=== PATIENT | female | born 1955 | race Caucasian/White ===

== ENCOUNTER 2016-09-22 09:06 | Observation (INO) ==
[2016-09-22 10:06] LABS: Basophils % 0.6 %; Eosinophils % 0.6 %; Hemoglobin 12.2 g/dL (11.5-15.4); Immature Granulocytes % 1.4 % (0-4); Lymphocytes % 27.2 %; Mean Corpuscular HGB Conc 33.9 g/dL (31.6-35.5); Mean Corpuscular Hemoglobin 29.8 pg (28.0-33.3); Mean Platelet Volume 9.3 fL (9.4-12.4); Monocytes # 0.6 K/mcL (0.0-1.3); Neutrophils # 1.9 K/mcL (1.6-8.9); Platelet Count 191 K/mcL (140-400); Red Blood Count 4.09 M/mcL (3.82-4.97); Red Cell Distribution Width 11.8 % (11.5-14.5); Segmented Neutrophils % 54.2 %
[2016-09-22 10:10] LABS: INR 1.2; Prothrombin Time 12.6 Seconds (9.4-12.1)
[2016-09-22 10:12] LABS: Activated Partial Thrombo Time 25.7 Seconds (26.0-36.0)
[2016-09-22 10:17] LABS: BUN/Creatinine Ratio 13 (6-26); Blood Urea Nitrogen 11 mg/dL (7-20); Calcium 8.8 mg/dL (8.6-10.8); Carbon Dioxide 30 mEq/L (19-29); Chloride 99 mEq/L (98-109); Glucose 147 mg/dL (70-99); Osmolality,Calculated 280 (280-300); Potassium 3.2 mEq/L (3.5-4.5); Sodium 134 mEq/L (136-145); eGFR For African Americans > 60 (> 60); eGFR For Non-African Americans > 60 (> 60)
--- NOTE | 2016-09-22 12:11 | Emergency Department Note ---
Disposition Clinical Impression: Syncope and collapse Disposition: Admitted As Inpatient Condition: Fair Time of Disposition: 17:41 Syncope HPI - General Chief Complaint: ED Syncope Stated Complaint: Syncopal episode Time Seen by Provider: 09/22/16 09:14 Source: patient, EMS Mode of arrival: private vehicle Limitations: no limitations Nursing Notes Reviewed: Yes Vital Signs Reviewed: Yes - History of Present Illness HPI Narrative: 60-year-old female presents to the emergency department status post syncopal episode. Patient states that while at work she arose from her chair to go use the restroom and "the next thing I know I was on the floor." Patient states that she did feel dizzy and lightheaded prior to this event. She denies any chest pain or shortness of breath. She currently states that she feels "completely normal." Additionally, patient notes that she has been sick with an upper respiratory infection for the last week and was recently prescribed azithromycin to treat this. She denies any urinary symptoms. She denies any fever, chills, nausea or vomiting. She has not had any abdominal pain. Pt Subjective Complaint: loss of consciousness, collapsed Onset (ago): Just SHOT [employer]LE [employer] Number of episodes: 1 Duration: second(s) Prodromal Symptoms: none Witnessed: yes - by bystander Context: standing up Injuries Sustained Associated with Event: none Current Symptoms: none, back to baseline History: none Treatments prior to arrival: IV fluids Associated trauma secondary to event: No - Related Data Home Medications Medication Instructions Recorded Confirmed Aspirin [Lo-Dose Aspirin EC] 81 mg PO DAILY 09/15/16 09/22/16 LORazepam [Ativan] 0.5 mg PO DAILY 09/15/16 09/22/16 Loratadine [Claritin] 10 mg PO DAILY 09/15/16 09/22/16 Ascorbate Calcium [Vitamin C] 500 mg PO DAILY 09/22/16 09/22/16 Azithromycin [Azithromycin 6-Tab 250 mg PO PER PKG DI 09/22/16 09/22/16 Pack] Buspirone HCl [Buspar] 10 mg PO DAILY 09/22/16 09/22/16 CarBAMazepine [Tegretol] 200 mg PO DAILY 09/22/16 09/22/16 Cholecalciferol (D-3) [Vitamin D] 2,000 unit PO DAILY 09/22/16 09/22/16 Fluticasone Propionate Nasal 50 mcg NS DAILY 09/22/16 09/22/16 [Flonase] Lisinopril/Hydrochlorothiazide 2 tab PO DAILY 09/22/16 09/22/16 [Zestoretic 20-12.5 mg Tablet] Multivitamin [One Daily Essential] 1 tab PO DAILY 09/22/16 09/22/16 Allergies Allergy/AdvReac Type Severity Reaction Status Date / Time Amoxicillin [From Augmentin] Allergy Hives Verified 09/15/16 19:56 Cephalosporins Allergy Hives Verified 09/22/16 14:16 clavulanic acid Allergy Hives Verified 09/15/16 19:56 [From Augmentin] All systems ED: reviewed and negative except as stated. Constitutional: Denies: fever, chills Cardiovascular: Denies: chest pain Respiratory: Denies: cough, dyspnea Gastrointestinal: Denies: abdominal pain, nausea, vomiting Musculoskeletal: Denies: back pain, neck pain Integumentary: Denies: rash, abrasion, lesions Neurological: Denies: headache Psychiatric: Denies: anxiety, depression, suicidal thoughts, homicidal thoughts Past Medical History - Past Medical History Attestation: Yes The following information was validated with the patient. Source: patient, nursing notes reviewed Medical history: Reports: hypertension Psychiatric history: Reports: anxiety - Social History Smoking Status: Never smoker Smokeless Tobacco Status: No Alcohol use: Reports: occasionally Drug use: Reports: none Physical Exam - General Limitations: no limitations General appearance: alert, in no apparent distress - Head Head exam: atraumatic, normocephalic, normal inspection - Eye Eye exam: Present: normal appearance, PERRL, EOMI. Absent: nystagmus - Neck Neck exam: Present: normal inspection, full ROM, trachea midline - Chest Chest inspection: Present: normal inspection, symmetric chest wall rise - Respiratory Respiratory exam: Present: normal lung sounds bilaterally. Absent: respiratory distress - Cardiovascular Cardiovascular exam: Present: regular rate, normal rhythm, normal heart sounds - Extremities Exam Extremities exam: Present: normal inspection, full ROM. Absent: tenderness, pedal edema - Expanded Lower Extremity Exam Gait: observed and normal - Back Exam Back exam: Present: normal inspection, full ROM. Absent: tenderness - Neurological Exam Neurological exam: Present: alert, oriented X3 - Psychiatric Psychiatric exam: Present: normal affect, normal mood - Skin Skin exam: Present: warm, dry, intact, normal color Course - Consultations Consultation #1: I discussed this patients history and physical with Dr. Cheatham, he accepts the patient for admission. Vital Signs Temperature 98.8 F 09/22/16 09:08 Pulse Rate 94 09/22/16 09:08 Respiratory Rate 16 09/22/16 09:08 Blood Pressure 113/81 09/22/16 09:08 O2 Sat by Pulse Oximetry 95 09/22/16 09:08 Temperature 98.2 F 09/23/16 07:41 Pulse Rate 67 09/23/16 07:41 Respiratory Rate 15 09/23/16 07:41 Blood Pressure 124/74 09/23/16 07:41 O2 Sat by Pulse Oximetry 95 09/23/16 07:41 Oxygen Delivery Oxygen Delivery Room Air Syncope - Lab Data Lab results reviewed: Yes I reviewed the patient's lab results. Result diagrams: 09/23/16 00:23 09/23/16 00:23 Lab Results 09/22/16 09/22/16 09/22/16 Range/Units 09:23 09:53 09:53 WBC 3.6 L (4.3-11.1) K/mcL RBC 4.09 (3.82-4.97) M/mcL Hgb 12.2 (11.5-15.4) g/dL Hct 36.0 (35.3-44.9) % MCV 88.0 (83.0-100.0) fL MCH 29.8 (28.0-33.3) pg MCHC 33.9 (31.6-35.5) g/dL RDW 11.8 (11.5-14.5) % Plt Count 191 (140-400) K/mcL MPV 9.3 L (9.4-12.4) fL Immature Gran % 1.4 (0-4) % Seg Neutrophils % 54.2 % Lymphocytes % 27.2 % Monocytes % 16.0 % Eosinophils % 0.6 % Basophils % 0.6 % Neutrophils # 1.9 (1.6-8.9) K/mcL Lymphocytes # 1.0 (0.6-4.6) K/mcL Monocytes # 0.6 (0.0-1.3) K/mcL Eosinophils # 0.0 (0.0-0.6) K/mcL Basophils # 0.0 (0.0-0.2) K/mcL PT 12.6 H (9.4-12.1) Seconds INR 1.2 APTT 25.7 L (26.0-36.0) Seconds Sodium (136-145) mEq/L Potassium (3.5-4.5) mEq/L Chloride (98-109) mEq/L Carbon Dioxide (19-29) mEq/L BUN (7-20) mg/dL Creatinine (0.57-1.11) mg/dL Est GFR ( Amer) (> 60) Est GFR (Non-Af Amer) (> 60) BUN/Creatinine Ratio (6-26) Glucose (70-99) mg/dL POC Glucose 168 H (58-89) Calculated Osmolality (280-300) Calcium (8.6-10.8) mg/dL Troponin I (0-0.03) ng/mL 09/22/16 09/22/16 Range/Units 09:53 09:53 WBC (4.3-11.1) K/mcL RBC (3.82-4.97) M/mcL Hgb (11.5-15.4) g/dL Hct (35.3-44.9) % MCV (83.0-100.0) fL MCH (28.0-33.3) pg MCHC (31.6-35.5) g/dL RDW (11.5-14.5) % Plt Count (140-400) K/mcL MPV (9.4-12.4) fL Immature Gran % (0-4) % Seg Neutrophils % % Lymphocytes % % Monocytes % % Eosinophils % % Basophils % % Neutrophils # (1.6-8.9) K/mcL Lymphocytes # (0.6-4.6) K/mcL Monocytes # (0.0-1.3) K/mcL Eosinophils # (0.0-0.6) K/mcL Basophils # (0.0-0.2) K/mcL PT (9.4-12.1) Seconds INR APTT (26.0-36.0) Seconds Sodium 134 L (136-145) mEq/L Potassium 3.2 L (3.5-4.5) mEq/L Chloride 99 (98-109) mEq/L Carbon Dioxide 30 H (19-29) mEq/L BUN 11 (7-20) mg/dL Creatinine 0.82 (0.57-1.11) mg/dL Est GFR ( Amer) > 60 (> 60) Est GFR (Non-Af Amer) > 60 (> 60) BUN/Creatinine Ratio 13 (6-26) Glucose 147 H (70-99) mg/dL POC Glucose (58-89) Calculated Osmolality 280 (280-300) Calcium 8.8 (8.6-10.8) mg/dL Troponin I 0.00 (0-0.03) ng/mL - Radiology Data Radiology results reviewed: Yes I reviewed the patient's radiology results. Chest X-Ray 09/22/16 09:14 IMPRESSION: No acute cardiopulmonary disease. D/ / Raj Liao MD / Raj Liao MD Interpreting Provider: Raj Liao MD Head CT 09/22/16 09:15 IMPRESSION: 1. No acute intracranial abnormality. 2. Mild left maxillary sinus disease with possible air-fluid level seen suggesting a degree of acuity. D/ / 09/22/2016 10:19:39 Whit Ontiveros MD / [facility] Interpreting Provider: Whit Ontiveros MD Brain MRI 09/22/16 17:37 IMPRESSION: No acute intracranial abnormality or finding to suggest etiology of patient's symptoms. D/ / Raza Becker MD / Raza Becker MD Interpreting Provider: Raza Becker MD Foot X-Ray 09/22/16 17:57 IMPRESSION: No acute osseous abnormality. D/ / Virgilio Fontana MD / Virgilio Fontana MD Interpreting Provider: Virgilio Fontana MD Chest X-Ray 09/22/16 09:14 IMPRESSION: No acute cardiopulmonary disease. D/ / Raj Liao MD / Raj Liao MD Interpreting Provider: Raj Liao MD Head CT 09/22/16 09:15 IMPRESSION: 1. No acute intracranial abnormality. 2. Mild left maxillary sinus disease with possible air-fluid level seen suggesting a degree of acuity. D/ / 09/22/2016 10:19:39 Whit Ontiveros MD / [facility] Interpreting Provider: Whit Ontiveros MD Brain MRI 09/22/16 17:37 IMPRESSION: No acute intracranial abnormality or finding to suggest etiology of patient's symptoms. D/ / Raza Becker MD / Raza Becker MD Interpreting Provider: Raza Becker MD Foot X-Ray 09/22/16 17:57 IMPRESSION: No acute osseous abnormality. D/ / Virgilio Fontana MD / Virgilio Fontana MD Interpreting Provider: Virgilio Fontana MD Attestation Statement - Attestation Attestation: I examined this patient and my medical decision-making was reviewed with the HEADING MAKER/PA/Advanced Practice Nurse/Resident Physician. I agree with the documented findings, disposition and treatment plan as described except to the extent set forth below. Patient with emergency department with a chief complaint of syncope. Patient states she got up to go to the bathroom. She felt like she had a bowel movement. She passed out in the bathroom. States she has had upper respiratory symptoms for several days. On exam; alert sitting on the side of the bed in no acute distress. Heart regular rate and rhythm. Plan. Cardiac workup unremarkable. Patient admitted to the hospitalist.
[2016-09-22] MEDS ORDERED: Naloxone 0.4 MG/ML INJ IVP PRN (17:31)
[2016-09-22] MEDS ORDERED: *HR* Morphine 2 MG/ML SYRINGE IVP PRN (17:31)
--- NOTE | 2016-09-22 17:53 | Internal Med History&Physical ---
Date of Encounter: 09/22/16 Time of Encounter: 17:49 Assessment and Plan (1) Syncope and collapse Status: Acute Patient has a possible syncope and collapse. Other differentials can be -TIA. -Seizure disorder. -Micturition/defecation syncope. Plan: -Admitted as inpatient. -ASA/STATIN -PT/OT -CBC/CMP/lipid panel -MRI of the brain. -Echocardiogram. -Ultrasound carotid. -Neurology consult. -EEG. (2) Right foot sprain Status: Inactive We will get a x-ray of the right foot Qualifiers: Encounter type: initial encounter Qualified Code(s): S93.601A - Unspecified sprain of right foot, initial encounter (3) DVT prophylaxis Status: Acute Heparin Physical decision making: This patient has a [id number] risk of worsening in spite of being on appropriate treatment Internal Medicine - H&P: HPI Chief complaint: TIA/SZD Admitted From: Emergency Dept Plans for Post Hospital Care: Home History of present illness: PCP: Dr Dustin Rosales PMH : SZD,Anxiety, History of present illness: Patient is ongoing upper respiratory tract infection for the past 4 days. She is on azithromycin at this point. Patient was compliant with the medication. Over the weekend she was lethargic, dehydrated and fatigued secondary to her upper respiratory tract infection. This morning in the office she was working as usual. When she was in a restroom at that point she had sudden episode of passing out spell. She was found on the floor. Patient does not know how long she was on the floor. She was brought to consciousness by her coworkers. Patient has lightheadedness. She had a episode of bowel movement after this episode. Workup in the emergency room: Patient was evaluated in the emergency room. CT scan of the brain was done. It was negative for any acute abnormality. EKG and x-ray were within normal limits. Patient is still symptomatic. Reason for admission: This patient is a prior history of a seizure disorder. This entire episode can be TIA/seizure disorder/micturition syncope. Has spoken with urologist and he recommended admission and further workup. Family history: Non-contributor Past Med Surg Social Fam HX - Past Medical History Medical history: hypertension Psychiatric history: anxiety - Social History Smoking Status: Never smoker Smokeless Tobacco Status: No Alcohol use: occasionally Drug use: none Internal Medicine - H&P: Meds Aspirin [Lo-Dose Aspirin EC] 81 mg PO DAILY 09/15/16 [History] LORazepam [Ativan] 0.5 mg PO DAILY 09/15/16 [History] Loratadine [Claritin] 10 mg PO DAILY 09/15/16 [History] Ascorbate Calcium [Vitamin C] 500 mg PO DAILY 09/22/16 [History] Azithromycin [Azithromycin 6-Tab Pack] 250 mg PO PER PKG DI 09/22/16 [History] Buspirone HCl [Buspar] 10 mg PO DAILY 09/22/16 [History] Cholecalciferol (D-3) [Vitamin D] 2,000 unit PO DAILY 09/22/16 [History] Fluticasone Propionate Nasal [Flonase] 50 mcg NS DAILY 09/22/16 [History] Lisinopril/Hydrochlorothiazide [Zestoretic 20-12.5 mg Tablet] 2 tab PO DAILY 01/03 [History] Multivitamin [One Daily Essential] 1 tab PO DAILY 09/22/16 [History] CarBAMazepine [Tegretol] 200 mg PO BID #60 tablet 09/24/16 [Rx] Allergies Amoxicillin [From Augmentin] Allergy (Verified 09/15/16 19:56) Hives Cephalosporins Allergy (Verified 09/22/16 14:16) Hives clavulanic acid [From Augmentin] Allergy (Verified 09/15/16 19:56) Hives All Systems PM: A 10-system review of systems was performed and is negative for pertinent findings except as documented above in the HPI. - Constitutional Constitutional: no chills, no fever(s), no night sweats - EENT Eyes: no change in vision, no discharge, no pain, no photophobia Ears: no ear discharge, no ear pain, no tinnitus Nose, mouth and throat: no dysphagia, no nasal discharge, no neck pain, no sore throat - Cardiovascular Cardiovascular ROS IM: no chest pain, no diaphoresis, no dyspnea, no lightheadedness, no palpitations, no syncope - Respiratory Respiratory: no cough, no dyspnea, no wheezing, no excessive phlegm production - Gastrointestinal Gastrointestinal: no abdominal pain, no diarrhea, no hematemesis, no hematochezia, no melena, no nausea, no vomiting - Genitourinary Genitourinary: no change in urinary stream, no dysuria, no flank pain, no hematuria - Musculoskeletal Musculoskeletal ROS IM: no numbness, no tingling - Integumentary Integumentary IM: no rash, no unusual bruising - Neurological Neurological ROS: confusion, convulsions, disequilibrium, dizziness, no focal weakness, no numbness, no tingling, no tremor(s) - Hematologic/Lymphatic Hematologic/Lymphatic: no easy bruising - Constitutional Vitals: Temp Pulse Resp BP Pulse Ox 98.8 F 71 0 0/0 96 09/22/16 09:08 09/22/16 14:00 09/22/16 16:47 09/22/16 16:47 09/22/16 14:00 General appearance: Present: A&O X 3, pleasant, no acute distress, answers questions appropriately - Head Head exam: Present: atraumatic, normocephalic - Eye Eye exam: Present: PERRL, conjuntiva pink, sclera anicteric Pupils: Present: PERRL - Neck Neck exam general surgery: Present: supple, trachea midline. Absent: lymphadenopathy - Respiratory Respiratory exam: Present: CTAB. Absent: accessory muscle use, rales, rhonchi, wheezes - Cardiovascular Cardiovascular exam: Present: RRR, +S1, +S2. Absent: diastolic murmur, gallop, rubs, systolic murmur - GI/Abdominal GI/Abdominal exam: Present: normal bowel sounds, soft, no peritoneal signs. Absent: distended, tenderness - Extremities Exam Extremities exam: Present: warm, radial pulses palpable and symetrical. Absent : calf tenderness, cyanotic, pedal edema - Neurological Exam Neurological exam: Present: CN II-XII intact, oriented X3, no focal deficits. Absent: pronater drift, facial droop, speech deficit - Skin Skin exam: Present: dry, intact Internal Med - H&P Results - Labs CBC & Chem 7: 09/23/16 00:23 09/23/16 00:23
[2016-09-22 20:46] LABS: Bilirubin,Urine Negative (Negative); Blood,Urine Negative (Negative); Clarity,Urine Clear (Clear); Color,Urine Yellow (Yellow); Glucose,Urine (UA) Normal (Normal); Ketones,Urine Negative (Negative); Leukocyte Esterase,Urine Large (Negative); Nitrite,Urine Negative (Negative); PH,Urine 6.5 pH Units (5.0-8.0); Protein,Urine Negative (Neg-Trace); Urobilinogen,Urine Normal (Normal)
[2016-09-22 20:48] LABS: Bacteria,Urine None Seen per hpf (None-Few); Hyaline Casts,Urine None Seen per lpf (None-Few); RBC,Urine 0-3 per hpf (0-3); Squamous Epithelial Cell,Urine Many per lpf (None-Few); WBC,Urine 30-50 per hpf (0-3)
[2016-09-22] MEDS: 0.9 % Sodium Chloride 1,000 ML IVC SCH (20:48)
[2016-09-22] MEDS: *HR* Heparin 5,000 UNIT/ML VIAL SQ SCH (20:49)
[2016-09-23 02:02] LABS: Basophils % 0.5 %; Eosinophils # 0.1 K/mcL (0.0-0.6); Eosinophils % 1.6 %; Hematocrit 34.7 % (35.3-44.9); Hemoglobin 11.8 g/dL (11.5-15.4); Immature Granulocytes % 1.4 % (0-4); Lymphocytes # 2.1 K/mcL (0.6-4.6); Lymphocytes % 48.5 %; Mean Corpuscular Hemoglobin 30.1 pg (28.0-33.3); Mean Corpuscular Volume 88.5 fL (83.0-100.0); Mean Platelet Volume 9.9 fL (9.4-12.4); Monocytes # 0.6 K/mcL (0.0-1.3); Monocytes % 14.2 %; Neutrophils # 1.5 K/mcL (1.6-8.9); Platelet Count 204 K/mcL (140-400); Red Blood Count 3.92 M/mcL (3.82-4.97); Red Cell Distribution Width 11.9 % (11.5-14.5); Segmented Neutrophils % 33.8 %
[2016-09-23 02:31] LABS: Alanine Aminotransferase 30 Units/L (0-55); Albumin/Globulin Ratio 0.9 (1.1-2.2); Alkaline Phosphatase 62 Units/L (38-126); BUN/Creatinine Ratio 14 (6-26); Bilirubin,Total 0.3 mg/dL (0.2-1.2); Blood Urea Nitrogen 11 mg/dL (7-20); Calcium 8.7 mg/dL (8.6-10.8); Carbon Dioxide 24 mEq/L (19-29); Chloride 101 mEq/L (98-109); Chol/HDL Ratio 4.7 (0-4.9); Cholesterol 208 mg/dL (< 200); Globulin 3.5 g/dL (2.4-3.5); Glucose 94 mg/dL (70-99); HDL Cholesterol 44 mg/dL (40-59); LDL Cholesterol,Calculated 140 mg/dL (0-99); Osmolality,Calculated 279 (280-300); Phosphorous 3.4 mg/dL (2.3-4.7); Potassium 4.2 mEq/L (3.5-4.5); Sodium 135 mEq/L (136-145); Total Protein 6.5 g/dL (6.0-8.3); Triglycerides 121 mg/dL (< 150); eGFR For African Americans > 60 (> 60); eGFR For Non-African Americans > 60 (> 60)
[2016-09-23 02:41] LABS: Aspartate Amino Transferase 32 Units/L (5-34); Magnesium 1.9 mg/dL (1.6-2.6)
[2016-09-23] MEDS: *HR* Heparin 5,000 UNIT/ML VIAL SQ SCH ×2 (05:49→17:15)
[2016-09-23] MEDS: carBAMazepine 200 MG TABLET PO SCH (08:50)
[2016-09-23] MEDS: Aspirin Enteric Coated 81 MG Tablet PO SCH (08:50)
[2016-09-23] MEDS: *HR* LORazepam 0.5 MG TABLET PO SCH (08:50)
[2016-09-23] MEDS: Lisinopril-HCTZ 20-12.5mg TABLET PO SCH (08:50)
[2016-09-23] MEDS: 0.9 % Sodium Chloride 1,000 ML IVC SCH (08:52)
[2016-09-23] MEDS: Loratadine 10 MG TABLET PO SCH ×2 (09:08)
--- NOTE | 2016-09-23 09:16 | Internal Med Progress Note ---
<Ruben Aj - Last Filed: 09/23/16 14:11> Date of Encounter: 09/23/16 Time of Encounter: 09:11 - Assessment and plan (1) Syncope and collapse Current Visit: Yes Status: Acute Assessment and plan: 66 F hx of seizure disorder, HTN and anxiety. Presented with cc of syncope. Denies tongue biting. +defecation Etiology unkown. Patient being evaluated for seziures: EEG shows no evidence of seizure activity CT head and MRI Brain negative ECHO and carotid duplex pending. Has been on Dilantin in the past and now on Tegretol. Neurology on board and plans to increase Tegretol level to 200 BID. Hx of syncopal epidsodes in the Past since age 31. Has had full Neuro workup in the past but etiology was still unknown ORder tegretol level. Orthostasis: Denies dizziness, pre-syncope when standing from sitting or lying position WIll obtain orthostatsis vitals TIA: RF: HTN, HLD, no hx of stroke Neuro exam nonfocal non lateralizing MRI brain negative ECHO pending Continue aspirin statin. (2) Seizure disorder Current Visit: Yes Status: Acute Assessment and plan: Seizure hx as stated above. Patient is on Tegretol 200 daily. Will increase to 200 BID. EEG shows no seizure activity MRI brain WNL. Order Tegretol level. (3) Anxiety Current Visit: Yes Status: Acute Assessment and plan: Controlled Generalized anxiety disorder. Continue home buspar and ativan. (4) Hypertension Current Visit: Yes Status: Acute Assessment and plan: BP controlled. Essential HTN. Continue home lisinopril/HCTZ. d/c fluids Qualifiers: Hypertension type: essential hypertension Qualified Code(s): I10 - Essential (primary) hypertension (5) DVT prophylaxis Current Visit: Yes Status: Acute Assessment and plan: continue heparin. (6) Ankle sprain Current Visit: Yes Status: Acute Assessment and plan: Patient states after syncopal episodes she woke up with right foot pain. On PE ROM is equal b/l, there is no brusing, not tender to touch. x-ray left foot shows no osseous or ligamentous abnormalities. Qualifiers: Encounter type: initial encounter Involved ligament of ankle: unspecified ligament Laterality: right Qualified Code(s): S93.401A - Sprain of unspecified ligament of right ankle, initial encounter (7) URI (upper respiratory infection) Current Visit: Yes Status: Acute Assessment and plan: Patient was being treated outpatient with Azithromycin for URI. She had taken three doses. Will finish five day course. WBC is WNL, afebrile, vitals are stable. Denies cough, runny nose. Azithromycin 250mg Daily for 2 days Qualifiers: URI type: unspecified URI Qualified Code(s): J06.9 - Acute upper respiratory infection, unspecified - Subjective Interval history: 60F admitted for cc of syncope. Hx of seizure, anxiety and HTN. Patient was at work and passed out while going to restroom. EKG and x-ray were WNL. Patient says no one ever has witnessed her having a seizure. Since age 31 she has had multiple work up for passing out which have always been negative. She used to be on Dilantin, but that was changed to Tegretol because of side effect of dry mouth. Denies Patient denies any problems last night. Denies CP, abdmonial pain, sob, N/V/D, dizziness, numbness, tingling. - Constitutional Vitals: Temp Pulse Resp BP Pulse Ox 98.2 F 67 15 124/74 95 09/23/16 07:41 09/23/16 07:41 09/23/16 07:41 09/23/16 07:41 09/23/16 07:41 General appearance: Present: A&O X 3, pleasant, no acute distress, answers questions appropriately - Eye Eye exam: Present: PERRL, conjuntiva pink, sclera anicteric - Neck Neck exam general surgery: Present: supple, trachea midline. Absent: lymphadenopathy - Respiratory Respiratory exam: Present: CTAB. Absent: accessory muscle use, rales, rhonchi, wheezes - Cardiovascular Cardiovascular exam: Present: RRR, +S1, +S2. Absent: diastolic murmur, gallop, rubs, systolic murmur - GI/Abdominal GI/Abdominal exam: Present: normal bowel sounds, soft, no peritoneal signs. Absent: distended, tenderness - Extremities Exam Extremities exam: Present: warm, radial pulses palpable and symetrical. Absent : calf tenderness, cyanotic, pedal edema - Neurological Exam Neurological exam: Present: CN II-XII intact, oriented X3, no focal deficits, strengths equal and symetr throughout. Absent: pronater drift, facial droop, speech deficit Internal Medicine: Result - Labs CBC & Chem 7: 09/23/16 00:23 09/23/16 00:23 Labs: Short CBC 09/23/16 Range/Units 00:23 WBC 4.3 (4.3-11.1) K/mcL Hgb 11.8 (11.5-15.4) g/dL Hct 34.7 L (35.3-44.9) % Plt Count 204 (140-400) K/mcL Neutrophils # 1.5 L (1.6-8.9) K/mcL BMP 09/23/16 00:23 Sodium 135 L Potassium 4.2 D Chloride 101 Carbon Dioxide 24 BUN 11 Creatinine 0.79 Glucose 94 Calcium 8.7 Cardiac Enzymes 09/22/16 09/23/16 09/23/16 Range/Units 19:03 00:23 05:34 Troponin I 0.00 0.01 0.01 (0-0.03) ng/mL Liver Function 09/23/16 Range/Units 00:23 Total Bilirubin 0.3 (0.2-1.2) mg/dL AST 32 (5-34) Units/L ALT 30 (0-55) Units/L Alkaline Phosphatase 62 (38-126) Units/L Albumin 3.0 L (3.5-5.0) g/dL Urine 09/22/16 Range/Units 20:40 Urine Color Yellow (Yellow) Urine Clarity Clear (Clear) Urine pH 6.5 (5.0-8.0) pH Units Ur Specific [place] 1.010 (1.010-1.025) Urine Protein Negative (Neg-Trace) mg/dL Urine Glucose (UA) Normal (Normal) mg/dL - ABG Interpretation ABG results: PT/INR, D-dimer PT 12.6 Seconds (9.4-12.1) H 09/22/16 09:53 - Impressions Impressions Foot X-Ray 09/22/16 17:57 IMPRESSION: No acute osseous abnormality. D/ / Virgilio Fontana MD / Virgilio Fontana MD Interpreting Provider: Virgilio Fontana MD Consult Discharge Plan - Plan Referrals: NO,PCP [Primary Care Provider] - <Reynaldo Rausch T - Last Filed: 09/23/16 17:39> - Constitutional Vitals: Temp Pulse Resp BP Pulse Ox 98.2 F 80 15 101/64 97 09/23/16 15:02 09/23/16 15:02 09/23/16 15:02 09/23/16 15:02 09/23/16 15:02 Internal Medicine: Result - Labs CBC & Chem 7: 09/23/16 00:23 09/23/16 00:23 Labs: Short CBC 09/23/16 Range/Units 00:23 WBC 4.3 (4.3-11.1) K/mcL Hgb 11.8 (11.5-15.4) g/dL Hct 34.7 L (35.3-44.9) % Plt Count 204 (140-400) K/mcL Neutrophils # 1.5 L (1.6-8.9) K/mcL BMP 09/23/16 00:23 Sodium 135 L Potassium 4.2 D Chloride 101 Carbon Dioxide 24 BUN 11 Creatinine 0.79 Glucose 94 Calcium 8.7 Cardiac Enzymes 09/22/16 09/23/16 09/23/16 Range/Units 19:03 00:23 05:34 Troponin I 0.00 0.01 0.01 (0-0.03) ng/mL Liver Function 09/23/16 Range/Units 00:23 Total Bilirubin 0.3 (0.2-1.2) mg/dL AST 32 (5-34) Units/L ALT 30 (0-55) Units/L Alkaline Phosphatase 62 (38-126) Units/L Albumin 3.0 L (3.5-5.0) g/dL Urine 09/22/16 Range/Units 20:40 Urine Color Yellow (Yellow) Urine Clarity Clear (Clear) Urine pH 6.5 (5.0-8.0) pH Units Ur Specific [place] 1.010 (1.010-1.025) Urine Protein Negative (Neg-Trace) mg/dL Urine Glucose (UA) Normal (Normal) mg/dL - ABG Interpretation ABG results: PT/INR, D-dimer PT 12.6 Seconds (9.4-12.1) H 09/22/16 09:53 - Impressions Impressions Foot X-Ray 09/22/16 17:57 IMPRESSION: No acute osseous abnormality. D/ / Virgilio Fontana MD / Virgilio Fontana MD Interpreting Provider: Virgilio Fontana MD - Attending Attestation I examined this patient and my medical decision-making was reviewed with the [employer]/PA/Advanced Practice Nurse/Resident Physician. I agree with the documented findings, disposition and treatment plan as described except to the extent set forth below. 60-year-old female with history of seizure disorder remotely, admitted for management of syncope. Patient is seen at bedside. Its Possible That the Patient's Syncope Secondary to Seizures as She Had a Bowel Movement Incontinence after the Episode. Dehydration is also a possible differential Physical exam shows stable vitals Labs and Imaging reviewed She Is Being Evaluated by Neurology. Work so far Far Including Brain MRI, Head CT, Echocardiogram, Carotid Doppler, Chemistry, LFTs, within Normal Limits. Lipid panel showed slightly Elevated LDL and HDL. EEG yet to be reviewed by neurology, recommendations to increase tegretol noted Complained of sore throat, swab done is negative for strept Plan continue current management, anticipate discharge a.m if EEG returns negative
--- NOTE | 2016-09-23 11:44 | Electrocardiograph Report ---
[address] [place] [address] Test Date: 2016-09-22 Pat Name: Rajni Ruffin Department: 105 Room: 3B Gender: F Stock Analyst: : 1955 Requested By: Kike Nelson Order Number: [id number] Reading MD: Saurav Monterroso MD Measurements Intervals [place] Rate: 90 P: 12 [place]: 159 QRS: -9 QRSD: 102 T: 50 QT: 352 QTc: 399 Interpretive Statements SINUS RHYTHM LEFT ATRIAL ENLARGEMENT LEFT VENTRICULAR HYPERTROPHY Electronically Signed On 09-23-2016 11:42:59 EST by Saurav Monterroso MD
--- NOTE | 2016-09-23 12:46 | EEG/EMG/Oth Biometrics Report ---
EEG Procedure Report Date of procedure: 09/23/16 EEG Procedure: Routine EEG Procedure Note: Routine EEG Routine 18-channel digital EEG was obtained to rule out any seizure activity or focal abnormalities. FINDINGS: Background rhythm during awake stage shows well-organized, well- developed, average voltage 8 to 9 hertz alpha activity in the posterior regions. It blocks with eye opening and it is bilaterally synchronous and symmetrical. No [id number] discharges or any lateralizing abnormalities are seen. Photic stimulation did not produce any abnormalities. Hyperventilation was not performed. No abnormalities were found during the procedure. Intermittent EMG artifacts were seen. Stage II sleep was not achieved. IMPRESSION: Normal awake study. No epileptiform discharges or any other paroxysmal activities or focal abnormalities seen. Please note that normal EEG does not exclude the diagnosis of seizure or epilepsy, Clinical correlation is recommended.
[2016-09-23] MEDS: Azithromycin 250 MG TABLET PO SCH (15:10)
--- NOTE | 2016-09-23 16:20 | Neurology - Consult Note ---
Date of Encounter: 09/23/16 Time of Encounter: 08:20 Assessment and Plan (1) Syncope and collapse Current Visit: Yes Status: Acute This patient possible has syncope and collapse, cause context of recent illness not eating very well and on ANTIBIOTICS perhaps may have precipitated it. though other possibility is of seizure, patient in someone who has an history of seizure disorder. less likely TIA or stroke but description is not typical of it . CT scan of the head and MRI already negative normal neurological examination. We will review -EEG. (2) Seizure disorder Current Visit: Yes Status: Acute This patient was a remote history of seizure disorder already on low-dose of carbamazepine suggested to check the level and at the same time increased the dose to 200 mg twice a day. Will review EEG for any interictal abnormalities Side that suggest to check any underlying infectious or any metabolic abnormalities that may be causing or contributing to her symptoms. Also suggest to check for other cardiac causes of syncope as well. She should be on seizure precautions History of Present Illness HPI: Ms. Ruffin is a 60 year old female with ongoing upper respiratory tract infection for the past several days. Over the weekend she was lethargic, dehydrated and fatigued secondary to her upper respiratory tract infection. on the morning of admission she was in the office working as usual. went to restroom where she had sudden episode of passing out.. She was found on the floor. Patient does not know how long she was on the floor. She was brought to consciousness by her coworkers. she was lightheaded, and had episode of bowel movement. CT scan of the brain was done. It was negative for any acute abnormality. EKG and x-ray were within normal limits. Patient has a remote history of seizure-like activity more than 30 years ago when she had convulsive activity and at the same time also had some Seizure Predominantly Staring Spells, she was not started on Dilantin but not able to tolerate due to the side effects Of it and she was started on Tegretol and she continued to be on it until now though she is taking a very low dose of it, and according to the patient she takes low-dose just to keep her mood straight. She denies any seizure type of activity beside this recent spell Past Med Surg Social Fam HX - Past Medical History Medical history: hypertension Psychiatric history: anxiety - Past Surgical History Surgical History: hysterectomy - Social History Smoking Status: Never smoker Smokeless Tobacco Status: No Alcohol use: occasionally Drug use: none - Family History Mother Hx Family Cancer: Yes (cervical) Medications and Allergies Aspirin [Lo-Dose Aspirin EC] 81 mg PO DAILY 09/15/16 [History] LORazepam [Ativan] 0.5 mg PO DAILY 09/15/16 [History] Loratadine [Claritin] 10 mg PO DAILY 09/15/16 [History] Ascorbate Calcium [Vitamin C] 500 mg PO DAILY 09/22/16 [History] Azithromycin [Azithromycin 6-Tab Pack] 250 mg PO PER PKG DI 09/22/16 [History] Buspirone HCl [Buspar] 10 mg PO DAILY 09/22/16 [History] CarBAMazepine [Tegretol] 200 mg PO DAILY 09/22/16 [History] Cholecalciferol (D-3) [Vitamin D] 2,000 unit PO DAILY 09/22/16 [History] Fluticasone Propionate Nasal [Flonase] 50 mcg NS DAILY 09/22/16 [History] Lisinopril/Hydrochlorothiazide [Zestoretic 20-12.5 mg Tablet] 2 tab PO DAILY 01/03 [History] Multivitamin [One Daily Essential] 1 tab PO DAILY 09/22/16 [History] Allergies Amoxicillin [From Augmentin] Allergy (Verified 09/15/16 19:56) Hives Cephalosporins Allergy (Verified 09/22/16 14:16) Hives clavulanic acid [From Augmentin] Allergy (Verified 09/15/16 19:56) Hives All Systems: A 10-system review of systems was performed and is negative for pertinent findings except as documented above in the HPI. Physical Examination - Vital Signs Vital Signs: Initial Vital Signs Temp Pulse Resp BP Pulse Ox 98.8 F 94 16 113/81 95 09/22/16 09:08 09/22/16 09:08 09/22/16 09:08 09/22/16 09:08 09/22/16 09:08 - Neurologic Detailed motor examination: full strength in all major muscle groups Motor examination - right side: 5/5: deltoids, biceps, triceps, wrist flexion, wrist extension, cotton ginner helper, hip flexors, tibialis Anterior, quadriceps, toe extension (EHL), plantarflexion Motor examination - left side: 5/5: deltoids, biceps, triceps, wrist flexion, wrist extension, hip flexors, cotton ginner helper, quadriceps, tibialis Anterior, toe extension (EHL), plantarflexion Mental Status Examination: awake, alert, oriented to person, oriented to place, oriented to time, follows commands appropriately, answers questions appropriately, no agnosia, no aphasia, no aproxia Cranial nerve examination: PERRL, EOMI, visual monk intact, corneal reflexes brisk symmetrically, sensory to face intact, mastication intact, no facial asymmetry is present, no dysarthria, hearing is intact symmetrically, soft palate elevates bilaterally upon phonation, gag reflex intact, flexes SCM and trapezius muscles symmetrically with full power, tongue protrudes midline, no atrophy or facial fasiculations present Cerebellar examination: no dysmetria, performs finger to nose and heel to gonzalez symmetrically without ataxia, no gait ataxia, no truncal ataxia, no difficulty with rapid alternating movements Results - Laboratory Findings CBC and BMP: 09/23/16 00:23 09/23/16 00:23 Abnormal lab findings: Abnormal lab results Hct 34.7 % (35.3-44.9) L 09/23/16 00:23 Neutrophils # 1.5 K/mcL (1.6-8.9) L 09/23/16 00:23 PT 12.6 Seconds (9.4-12.1) H 09/22/16 09:53 APTT 25.7 Seconds (26.0-36.0) L 09/22/16 09:53 Sodium 135 mEq/L (136-145) L 09/23/16 00:23 POC Glucose 116 (58-89) H 09/23/16 15:05 Calculated Osmolality 279 (280-300) L 09/23/16 00:23 Albumin 3.0 g/dL (3.5-5.0) L 09/23/16 00:23 Albumin/Globulin Ratio 0.9 (1.1-2.2) L 09/23/16 00:23 Cholesterol 208 mg/dL (< 200) H 09/23/16 00:23 LDL Cholesterol, Calc 140 mg/dL (0-99) H 09/23/16 00:23 Ur Leukocyte Esterase Large (Negative) H 09/22/16 20:40 Urine Microscopic WBC 30-50 per hpf (0-3) H 09/22/16 20:40 Ur Squamous Epith Cells Many per lpf (None-Few) H 09/22/16 20:40 Carbamazepine 2.9 mcg/mL (4.0-12.0) L 09/23/16 05:34 - Diagnostic Findings Additional findings: MRI of the brain did not reveal any abnormality. Consult Discharge Plan - Plan Referrals: NO,PCP [Primary Care Provider] -
--- NOTE | 2016-09-23 17:22 | ECHO - Doppler Report ---
Echo with Saline Contrast Name: Rajni Ruffin Date of Study: 09/23/2016 Date: 1955 Ht: 64.0 in Medical Record#: [id number] Age: 60 Wt: 191.0 lb Gender: Female BSA: 1.92 Order #: [id number] Location: [facility] Room #: [place] Reading Physician: Celina Lou DO Non Morse Intercept Technician: Cherelle Early Ordering Physician: Teo Cheatham MD Primary Physician: None Indications:?TIA Impressions: LVEF 60%. Normal left ventricular size and systolic function. There is evidence of mild diastolic dysfunction of the left ventricle. Normal right ventricular size and function. No significant valvular dysfunction. No pulmonary hypertension. No PFO with saline contrast. Left Ventricular Wall Motion: Rest Echo Findings All wall segments showed normal motion. Findings: Study Quality * Technically adequate exam. ECG Findings * Normal sinus rhythm. Left Ventricle * LVEF 60%. * Mild left ventricular diastolic dysfunction. * Basal sigmoid septum. No LVOTO. Mitral Valve * Normal mitral valve structure. * Mild mitral annular calcification * No mitral stenosis. * Trace mitral regurgitation. Aortic Valve * No aortic regurgitation. * Aortic valve not well visualized. * No aortic stenosis. Tricuspid Valve * Tricuspid valve not well visualized. * Trace tricuspid regurgitation. * Estimated RA pressure is 3 mmHg. * Estimated RVSP is 29 mmHg. * No pulmonary hypertension. Pulmonic Valve * Pulmonic valve is not well visualized. * No pulmonic stenosis. * No pulmonic regurgitation. Pulmonary Artery * Pulmonary artery not well visualized. Right Ventricle * Normal right ventricular structure and function. Right Atrium * Normal right atrial size. Left Atrium * Mildly dilated left atrium. Interatrial Septum * No evidence of PFO by color Doppler. * No evidence of PFO with agitated saline contrast. IVC * Normal IVC dimensions and inspiratory collapse. Pericardium * There is no pericardial effusion present. Aorta * Normally sized aortic root. History Hypertension Hypercholesteremia Family History of CAD 124 a was performed. Measurements: BP: 0/ 2D Normal Values RVIDd: 3.00 cm <2.7 cm IVSd: 1.60 cm 0.6 - 1.0 cm LVIDd: 4.80 cm 3.7 - 5.6 cm LVPWd: 1.00 cm 0.6 - 1.1 cm LVIDs: 3.40 cm 1.5 - 3.6 cm AO: 2.40 cm < 4.0 cm LA: 3.70 cm 2.0 - 4.0cm %FS: 29.20 cm >25 % LVOT Diam: 2.00 cm LA volume: 59 Mitral Valve Peak E:1.12 m/sec Peak A:1.09 m/sec E/A Ratio:1 Peak E' Lat Jefry:5.07 cm/s Peak E' Med Jefry:4.09 cm/s E/E' Lat Ratio:22.1 E/E' Med Ratio:27.4 LVOT Peak Jefry:1.83 m/sec Mean Jefry:1.16 m/sec Peak Grad:13.00 mmHg Mean Grad:6.00 mmHg Aortic Valve Peak Jefry:1.90 m/sec Mean Jefry:1.56 m/sec Peak Grad:14.00 mmHg Mean Grad:11.00 mmHg Valve Area:2.67 cm2 Tricuspid Valve TV Regurg Peak Grad: 26.00mmHg TV Regurg Peak Jefry: 2.57m/sec Updated by Celina Lou on 09/23/2016 5:16:40 PM electronically signed on 09/23/2016 5:17:24 PM with status of Final Wall Motion James: 1=Normal, 2=Hypokinesis, 3=Akinesis, 4=Dyskinesis, 5=Aneurysmal, 6=Hyperkinetic, X=Not Visualized (Blank)=Missing
[2016-09-24] MEDS: *HR* Heparin 5,000 UNIT/ML VIAL SQ SCH (06:27)
[2016-09-24 07:37] VITALS: BP 134/76
[2016-09-24] MEDS: Aspirin Enteric Coated 81 MG Tablet PO SCH (07:53)
[2016-09-24] MEDS: carBAMazepine 200 MG TABLET PO SCH (07:53)
[2016-09-24] MEDS: *HR* LORazepam 0.5 MG TABLET PO SCH (07:54)
[2016-09-24] MEDS: Azithromycin 250 MG TABLET PO SCH (07:54)
[2016-09-24] MEDS: Lisinopril-HCTZ 20-12.5mg TABLET PO SCH (07:54)
[2016-09-24] MEDS: Loratadine 10 MG TABLET PO SCH (07:54)
[2016-09-24] MEDS ORDERED: carBAMazepine 200 MG TABLET PO SCH (09:00)
--- NOTE | 2016-09-24 09:30 | Discharge Summary ---
<Ruben Aj - Last Filed: 09/24/16 09:19> Date of Encounter: 09/24/16 Time of Encounter: 09:19 - Discharge Diagnosis (1) Syncope and collapse Priority: Primary Status: Acute (2) Seizure disorder Priority: Secondary Status: Suspected (3) Anxiety Priority: Secondary Status: Chronic (4) Hypertension Priority: Secondary Status: Chronic Qualifiers: Hypertension type: essential hypertension Qualified Code(s): I10 - Essential (primary) hypertension (5) DVT prophylaxis Priority: Secondary Status: Acute (6) Ankle sprain Priority: Secondary Status: Acute Qualifiers: Encounter type: initial encounter Involved ligament of ankle: unspecified ligament Laterality: right Qualified Code(s): S93.401A - Sprain of unspecified ligament of right ankle, initial encounter (7) URI (upper respiratory infection) Priority: Secondary Status: Acute Qualifiers: URI type: unspecified URI Qualified Code(s): J06.9 - Acute upper respiratory infection, unspecified - Discharge Medications Prescriptions: CarBAMazepine [Tegretol] 200 mg PO BID #60 tablet Home Medications: Aspirin [Lo-Dose Aspirin EC] 81 mg PO DAILY 09/15/16 [History] LORazepam [Ativan] 0.5 mg PO DAILY 09/15/16 [History] Loratadine [Claritin] 10 mg PO DAILY 09/15/16 [History] Ascorbate Calcium [Vitamin C] 500 mg PO DAILY 09/22/16 [History] Azithromycin [Azithromycin 6-Tab Pack] 250 mg PO PER PKG DI 09/22/16 [History] Buspirone HCl [Buspar] 10 mg PO DAILY 09/22/16 [History] Cholecalciferol (D-3) [Vitamin D] 2,000 unit PO DAILY 09/22/16 [History] Fluticasone Propionate Nasal [Flonase] 50 mcg NS DAILY 09/22/16 [History] Lisinopril/Hydrochlorothiazide [Zestoretic 20-12.5 mg Tablet] 2 tab PO DAILY 01/03 [History] Multivitamin [One Daily Essential] 1 tab PO DAILY 09/22/16 [History] CarBAMazepine [Tegretol] 200 mg PO BID #60 tablet 09/24/16 [Rx] Allergies/Adverse Reactions: Allergies Amoxicillin [From Augmentin] Allergy (Verified 09/15/16 19:56) Hives Cephalosporins Allergy (Verified 09/22/16 14:16) Hives clavulanic acid [From Augmentin] Allergy (Verified 09/15/16 19:56) Hives Procedures/tests Complete & Pending: Procedures Performed prior 72 hours Category Date Time Status MR head/brain wo con [MR] Routine MRI 09/22/16 17:37 Completed EV carotid duplex imaging BI Routine Y 09/22/16 17:39 Completed EV echocardiogram Routine Y 09/22/16 17:39 Completed Date of admission: 09/22/16 16:24 Primary care physician: PCP NO Consults: 09/22/16 17:40 Consult to Neurology [CONS] Routine Consulting Provider: [facility] Reason for Consult: ?TIA?SZD Call Completed: Yes 09/22/16 17:59 Consult to Occupational Therapy [CONS] Routine Comment: Evaluate, develop and implement POC Consult to Physical Therapy [CONS] Routine Comment: Evaluate, develop and implement POC 09/23/16 11:09 Consult to Interpret Exam [CONS] Routine Consulting Provider: Phil Staton I Consult to Interpret Exam: Interpret EEG Discharging clinician: Ruben Aj Anticipated date of discharge: 09/24/16 - Patient Status Disposition: Home, Self-Care Condition: Fair Functional capacity at discharge: independent ambulation Overall status at discharge: patient is back to baseline - Discharge Instructions Follow Up With: Brda Chan, [Non-Partnered Physician] - Forms: Inpatient Work/School Release - Diet and Activity Activity: increase activity as tolerated Diet: advance to your usual diet Hospital course: Ms. Ruffin is a 60 year old female hx of seizures, HTN, anxiety. Patient presented post syncope and collapse at work. The event was not witnessed. On admission patient was alert and oriented 3. CT and MRI brain negative. EEG did not show any epileptiform activity. Echocardiogram showed an ejection fraction of 60% with no valvular or wall motion abnormality.Carotid duplex was negative for any carotid artery disease. Neurology was consultative and increased patient's, Carbamazepime to 200 mg twice a day as her level was subtherapeutic. She was evaluated with physical therapy and occupational therapy which cleared her for for discharge to home. Patient also finished her azithromycin 5 day course for upper respiratory infection. Rapid strep was negative. Furthermore patient had right ankle pain secondary to fall after having syncope. Right ankle x-ray was negative for fracture or ligamentous injury. Patient should follow up with PCP upon discharge. - Time Spent with Patient Total time spent providing and/or coordinating discharge services: - Constitutional Vitals: Temp Pulse Resp BP Pulse Ox 97.5 F L 68 14 134/76 96 09/24/16 07:36 09/24/16 07:36 09/24/16 07:36 09/24/16 07:36 09/24/16 07:36 General appearance: Present: A&O X 3, pleasant, no acute distress, answers questions appropriately - Head Head exam: Present: atraumatic, normocephalic - Eye Eye exam: Present: PERRL, conjuntiva pink, sclera anicteric - Neck Neck exam general surgery: Present: supple, trachea midline. Absent: lymphadenopathy - Respiratory Respiratory exam: Present: CTAB. Absent: accessory muscle use, rales, rhonchi, wheezes - Cardiovascular Cardiovascular exam: Present: diastolic murmur, +S1, +S2. Absent: gallop, rubs , systolic murmur - GI/Abdominal GI/Abdominal exam: Present: normal bowel sounds, soft, no peritoneal signs. Absent: distended, tenderness - Extremities Exam Extremities exam: Present: warm, radial pulses palpable and symetrical. Absent : calf tenderness, cyanotic, pedal edema - Neurological Exam Neurological exam: Present: CN II-XII intact, oriented X3, no focal deficits. Absent: pronater drift, facial droop, speech deficit - Skin Skin exam: Present: dry, intact <Reynaldo Rausch T - Last Filed: 09/24/16 14:31> Procedures/tests Complete & Pending: Procedures Performed prior 72 hours Category Date Time Status MR head/brain wo con [MR] Routine MRI 09/22/16 17:37 Completed EV carotid duplex imaging BI Routine Y 09/22/16 17:39 Completed EV echocardiogram Routine Y 09/22/16 17:39 Completed Date of admission: 09/22/16 16:24 Primary care physician: PCP NO Consults: 09/22/16 17:40 Consult to Neurology [CONS] Routine Consulting Provider: [facility] Reason for Consult: ?TIA?SZD Call Completed: Yes 09/22/16 17:59 Consult to Occupational Therapy [CONS] Routine Comment: Evaluate, develop and implement POC Consult to Physical Therapy [CONS] Routine Comment: Evaluate, develop and implement POC 09/23/16 11:09 Consult to Interpret Exam [CONS] Routine Consulting Provider: Phil Staton I Consult to Interpret Exam: Interpret EEG Hospital course: Ms. Ruffin is a 60 year old female - Time Spent with Patient Total time spent providing and/or coordinating discharge services: - Constitutional Vitals: Temp Pulse Resp BP Pulse Ox 97.5 F L 68 14 134/76 96 09/24/16 07:36 09/24/16 07:36 09/24/16 07:36 09/24/16 07:36 09/24/16 07:36 - Attending Attestation I examined this patient and my medical decision-making was reviewed with the MANAGER [employer]/PA/Advanced Practice Nurse/Resident Physician. I agree with the documented findings, disposition and treatment plan as described except to the extent set forth below. 60-year-old female with history of seizure disorder remotely, admitted for management of syncope and collapse. Patient is seen at bedside. Physical exam shows stable vitals and unremarkable systemic exam She denies new complains, work up is negative Work so far Far Including Brain MRI, Head CT, Echocardiogram, Carotid Doppler, Chemistry, LFTs, within Normal Limits. Lipid panel showed slightly Elevated LDL and HDL. EEG no epileptiform focus. , recommendations to increase tegretol by neurology was followed Patient also had history of bronchitis and completed her 5 days dose of Azithromycin in-patient. Throat swab negative for strep Patient is stable for discharge with recommendations to follow up with her PCP Verbalized understanding of plan States she received flu shot already.
--- NOTE | 2016-09-24 11:02 | Neurology Progress Note ---
<Dwayne Kirk - Last Filed: 09/24/16 10:58> Date of Encounter: 09/24/16 Time of Encounter: 10:58 Assessment and Plan (1) Syncope and collapse Status: Acute Patient's carbamazepine increased to 200 mg twice a day. The patient had a recent illness with associated diarrhea which likely contributed to the patient' s syncope according to what she is recalling. The patient denies any aura or prodromal symptoms to her syncope. The patient will need to follow up with neurology outpatient. In addition the patient should have a BMP obtained outpatient to determine if any hyponatremia or associated symptoms including altered mental status, headache, weakness. (2) Hypertension Status: Chronic Qualifiers: Hypertension type: essential hypertension Qualified Code(s): I10 - Essential (primary) hypertension (3) Seizure disorder Status: Suspected Subjective Principal diagnosis: Syncope Interval history: The patient states she is feeling much better at this time. She is able to eat and drink without difficulty. The patient is adamant that she did not have a seizure as she normally has Orosz previous to her seizures. The patient does admit to recent illness prior to the syncopal episode. She is convinced that she had a syncopal episode due to dehydration and recent diarrhea associated with her illness. It was explained to the patient that her carbamazepine was increased to 200 mg twice a day which she states she understands the reasoning given his recent stress and illness and antibiotic use. The patient will follow -up with neurology outpatient. She denies any other complaints at this time and states she is ready to go home. Objective - Constitutional Vitals: Temp Pulse Resp BP Pulse Ox 97.5 F L 68 14 134/76 96 09/24/16 07:36 09/24/16 07:36 09/24/16 07:36 09/24/16 07:36 09/24/16 07:36 General appearance: Present: A&O X 3, pleasant - Neurological Exam Sensorimotor examination: Present: intact Motor Examination: Present: full strength in all major muscle groups Motor examination - right side: 5/5: deltoids, biceps, triceps, wrist flexion, wrist extension, luster repairer, hip flexors, tibialis Anterior, quadriceps, toe extension (EHL), plantarflexion Motor examination - left side: 5/5: deltoids, biceps, triceps, wrist flexion, wrist extension, hip flexors, luster repairer, quadriceps, tibialis Anterior, toe extension (EHL), plantarflexion Sensation intact: Present: intact Reflexes: Biceps: 2+, Brachioradialis: 2+, Patella: 2+, Achilles: 2+ Mental Status Examination: Present: awake, alert, oriented to person, oriented to place, oriented to time, follows commands appropriately, answers questions appropriately, no agnosia, no aphasia, no aproxia Cranial nerve examination: Present: PERRL, EOMI, visual monk intact, corneal reflexes brisk symmetrically, sensory to face intact, mastication intact, no facial asymmetry is present, no dysarthria, hearing is intact symmetrically, soft palate elevates bilaterally upon phonation, gag reflex intact, flexes SCM and trapezius muscles symmetrically with full power, tongue protrudes midline, no atrophy or facial fasiculations present Cerebellar examination: Present: no dysmetria, performs finger to nose and heel to gonzalez symmetrically without ataxia, no gait ataxia, no truncal ataxia, no difficulty with rapid alternating movements Results - Laboratory Findings CBC and BMP: 09/23/16 00:23 09/23/16 00:23 Abnormal lab findings: Abnormal lab results Hct 34.7 % (35.3-44.9) L 09/23/16 00:23 Neutrophils # 1.5 K/mcL (1.6-8.9) L 09/23/16 00:23 PT 12.6 Seconds (9.4-12.1) H 09/22/16 09:53 APTT 25.7 Seconds (26.0-36.0) L 09/22/16 09:53 Sodium 135 mEq/L (136-145) L 09/23/16 00:23 Calculated Osmolality 279 (280-300) L 09/23/16 00:23 Albumin 3.0 g/dL (3.5-5.0) L 09/23/16 00:23 Albumin/Globulin Ratio 0.9 (1.1-2.2) L 09/23/16 00:23 Cholesterol 208 mg/dL (< 200) H 09/23/16 00:23 LDL Cholesterol, Calc 140 mg/dL (0-99) H 09/23/16 00:23 Ur Leukocyte Esterase Large (Negative) H 09/22/16 20:40 Urine Microscopic WBC 30-50 per hpf (0-3) H 09/22/16 20:40 Ur Squamous Epith Cells Many per lpf (None-Few) H 09/22/16 20:40 Carbamazepine 2.9 mcg/mL (4.0-12.0) L 09/23/16 05:34 Consult Discharge Plan - Plan Referrals: Brad Chan DO [Non-Partnered Physician] - Prescriptions: CarBAMazepine [Tegretol] 200 mg PO BID #60 tablet - Attending Attestation I examined this patient and my medical decision-making was reviewed with the Resident Physician. I agree with the documented findings, disposition and treatment plan as described except to the extent set forth below. <Phil Staton I - Last Filed: 09/24/16 15:53> Assessment and Plan (1) Syncope and collapse Status: Acute I examined this patient and my medical decision-making was reviewed with the Resident Physician. I agree with the documented findings, disposition and treatment plan Phil Staton MD (2) Seizure disorder Status: Suspected Objective - Constitutional Vitals: Temp Pulse Resp BP Pulse Ox 97.5 F L 68 14 134/76 96 09/24/16 07:36 09/24/16 07:36 09/24/16 07:36 09/24/16 07:36 09/24/16 07:36 Results - Laboratory Findings CBC and BMP: 09/23/16 00:23 09/23/16 00:23 Abnormal lab findings: Abnormal lab results Hct 34.7 % (35.3-44.9) L 09/23/16 00:23 Neutrophils # 1.5 K/mcL (1.6-8.9) L 09/23/16 00:23 PT 12.6 Seconds (9.4-12.1) H 09/22/16 09:53 APTT 25.7 Seconds (26.0-36.0) L 09/22/16 09:53 Sodium 135 mEq/L (136-145) L 09/23/16 00:23 Calculated Osmolality 279 (280-300) L 09/23/16 00:23 Albumin 3.0 g/dL (3.5-5.0) L 09/23/16 00:23 Albumin/Globulin Ratio 0.9 (1.1-2.2) L 09/23/16 00:23 Cholesterol 208 mg/dL (< 200) H 09/23/16 00:23 LDL Cholesterol, Calc 140 mg/dL (0-99) H 09/23/16 00:23 Ur Leukocyte Esterase Large (Negative) H 09/22/16 20:40 Urine Microscopic WBC 30-50 per hpf (0-3) H 09/22/16 20:40 Ur Squamous Epith Cells Many per lpf (None-Few) H 09/22/16 20:40 Carbamazepine 2.9 mcg/mL (4.0-12.0) L 09/23/16 05:34
--- NOTE | 2016-09-24 18:26 | Carotid Imaging Report ---
Carotid Duplex Patient Name:Rajni Ruffin Order Number:[id number] Procedure Date:09/23/2016 Date:1955ge:60 yrs Gender:Female Lt BP:115 / 76 mmHg Rt.BP:124 / 74 mmHgHeart Rate: Location:[facility] Room #: 3B47 Stack Attendant:Cherelle Early Referring MD:Teo Cheatham MD fire chief's aide:None Reading MD:Elliott Fitch MD , FACS Primary Indications:?TIA Risk Factors Yes/No Hypertension Yes Hypercholesterolemia Yes Impressions: Findings: Bilateral carotid system is essentially normal. Recommendations: After imaging the patient returned to their room. Findings Carotid Duplex: [place] scale imaging combined with Doppler flow analysis suggests normal findings bilaterally. Right: The right proximal common carotid artery has a PSV of 86 cm/s and a EDV of 15 cm/s. The right mid common carotid artery has a PSV of 92 cm/s and a EDV of 24 cm/s. The right distal common carotid artery has a PSV of 83 cm/s and a EDV of 23 cm/s. The right bifurcation has a PSV of 80 cm/s and a EDV of 20 cm/s. The right proximal internal carotid artery has a PSV of 53 cm/s and a EDV of 19 cm/s. The right mid internal carotid artery has a PSV of 71 cm/s and a EDV of 30 cm/s. The right distal internal carotid artery has a PSV of 102 cm/s and a EDV of 36 cm/s. The right eca has a PSV of 81 cm/s and a EDV of 17 cm/s. The right vertebral artery has a PSV of 58 cm/s and a EDV of 26 cm/s. Left: The left proximal common carotid artery has a PSV of 116 cm/s and a EDV of 28 cm/s. The left mid common carotid artery has a PSV of 94 cm/s and a EDV of 26 cm/s. The left distal common carotid artery has a PSV of 80 cm/s and a EDV of 28 cm/s. The left bifurcation has a PSV of 80 cm/s and a EDV of 27 cm/s. The left proximal internal carotid artery has a PSV of 87 cm/s and a EDV of 33 cm/s. The left mid internal carotid artery has a PSV of 95 cm/s and a EDV of 40 cm/s. The left distal internal carotid artery has a PSV of 92 cm/s and a EDV of 38 cm/s. The left eca has a PSV of 94 cm/s and a EDV of 20 cm/s. The left vertebral artery has a PSV of 63 cm/s and a EDV of 18 cm/s. Prior Study: No prior study available for comparison. Carotid Results Right PSV EDV Assessment Proximal CCA 86 15 Normal Mid CCA 92 24 Normal Distal CCA 83 23 Normal Bifurcation 80 20 Normal Proximal ICA 53 19 Normal Mid ICA 71 30 Normal Distal ICA 102 36 Normal ECA 81 17 Normal Vertebral Artery 58 26 Normal Left PSV EDV Assessment Proximal CCA 116 28 Normal Mid CCA 94 26 Normal Distal CCA 80 28 Normal Bifurcation 80 27 Normal Proximal ICA 87 33 Normal Mid ICA 95 40 Normal Distal ICA 92 38 Normal ECA 94 20 Normal Vertebral Artery 63 18 Normal Ratio's Right ICA/CCA Ratio: 1.11 ICA/CCA Values: 102/92 Left ICA/CCA Ratio: 1.01 ICA/CCA Values: 95/94 Updated by Elliott Fitch MD, FACS on 09/24/2016 6:21:58 PM Elliott Fitch MD electronically signed on 09/24/2016 6:22:27 PM with status of Final
== END 2016-09-24 11:45 | disposition home or self-care (01) ==
LOC: EMEROO 09:06 → 3BNU 09:06 → SUATTDRO 17:49 → 3BNU 18:46
PROVIDERS: ADMIT Nurse Practitioner Family; ATTEND Internal Medicine